=== PATIENT | male | born 1940 | race Caucasian/White ===

== ENCOUNTER → 2017-04-05 | Outpatient (CLI) | payer OTHER, MEDICARE | LOC: BHFA 10:45 | PROVIDERS: ATTEND Internal Medicine | DX: R06.02 Shortness of breath (principal); R07.9 Chest pain, unspecified ==

== ENCOUNTER → 2017-04-24 | Outpatient (CLI) | payer OTHER, MEDICARE | LOC: BHFA 08:30 | PROVIDERS: ATTEND Internal Medicine Cardiovascular Disease | DX: I25.10 Atherosclerotic heart disease of native coronary artery without angina pectoris (principal); R07.9 Chest pain, unspecified; R06.00 Dyspnea, unspecified | CPT/HCPCS: 78452; 93017; 93306; A9500 ==